=== PATIENT | female | born 1945 | race Two or more races ===

== ENCOUNTER 2018-09-18 18:32 | Emergency (ER) | payer MEDICARE, OTHER ==
[~2018-09-18] VITALS: Ht 162.6 cm; Wt 82.0 kg
[~2018-09-18 18:32] MED LIST: ASPI-1393 PO; GLIP10TA10 PO; HYDR25TA PO; LOSA100T32 PO; METF-414 PO; SIMV10TA6 PO
[2018-09-18] MEDS ORDERED: MORPHINE SULFATE 2 MG/ML CPJ (NOT FOR IM USE) IV ONE (21:00)
[2018-09-18] MEDS ORDERED: ONDANSETRON HCL 4MG/2ML INJ IV ONE (21:00)
[2018-09-18] MEDS ORDERED: SODIUM CHLORIDE 0.9% 1,000 ML IV ONE (21:00)
[2018-09-18 21:16] LABS: CLARITY URINE CLOUDY (CLEAR); COLOR URINE DARK YELLOW (YELLOW); KETONES URINE TRACE (NEGATIVE); LEUKOCYTE ESTERASE URINE TRACE (NEGATIVE); NITRITE URINE NEGATIVE (NEGATIVE); OCCULT BLOOD URINE NEGATIVE (NEGATIVE); PROTEIN URINE TRACE (NEGATIVE)
[2018-09-18 22:01] LABS: CHLORIDE 103 mEq/L (98-107)
[2018-09-18 22:02] LABS: BASOPHILS % 0.3 % (0.0-2.0); EOSINOPHILS % 0.7 % (0.0-5.0); HEMATOCRIT. 31.7 % (36.0-48.0); HEMOGLOBIN. 10.4 g/dL (12.0-16.0); LYMPHOCYTES % 29.6 % (20.0-50.0); MEAN CORPUSCULAR HEMOGLOBIN 29.3 pg (28.0-32.0); MEAN CORPUSCULAR VOLUME 89.5 fL (81.0-99.0); MEAN PLATELET VOLUME 7.4 fl (7.4-10.4); MONOCYTES % 7.4 % (2.0-8.0); PLATELET 371 x1000/uL (130-400); RED BLOOD CELL COUNT 3.55 mill/uL (4.2-5.4); RED CELL DISTRIBUTION WIDTH 14.9 % (11.6-14.6)
[2018-09-18 22:03] LABS: INR 1.2
[2018-09-18] MEDS ORDERED: KETOROLAC 15MG/ML VIAL IV ONE (22:15)
[2018-09-19] MEDS ORDERED: IOHEXOL-350 100 ML BOTTLE ONE (01:13)
[2018-09-19] MEDS ORDERED: ENOXAPARIN 30MG/0.3ML SYR SUBCUT ONE (02:00)
[2018-09-19] MEDS ORDERED: PIPERACILLIN/TAZ 3.375G PREMIX 50 ML IV ONE (02:00)
[2018-09-19 11:06] LABS: HEMOGLOBIN. 9.4 g/dL (12.0-16.0); MEAN CORPUSCULAR HEMOGLOBIN 30.1 pg (28.0-32.0); MEAN CORPUSCULAR VOLUME 89.7 fL (81.0-99.0); MEAN PLATELET VOLUME 7.4 fl (7.4-10.4); PLATELET 333 x1000/uL (130-400); RED BLOOD CELL COUNT 3.12 mill/uL (4.2-5.4); RED CELL DISTRIBUTION WIDTH 15.4 % (11.6-14.6)
[2018-09-19 11:09] LABS: CHLORIDE 108 mEq/L (98-107)
[2018-09-19 12:03] LABS: PLATELET ESTIMATE NORMAL
[2018-09-19 13:51] VITALS: BP 107/58
[2018-09-19] MEDS ORDERED: POTASSIUM CHLORIDE 20MEQ TABLET SR PO ONE (14:15)
== END 2018-09-19 14:36 | disposition home or self-care (01) ==
LOC: ER 18:32 → SUPCPDRO 09-19 14:00 → ER 09-19 14:36
DX: K55.069 Acute infarction of intestine, part and extent unspecified (principal); F41.9 Anxiety disorder, unspecified; E11.9 Type 2 diabetes mellitus without complications; I10 Essential (primary) hypertension; Z79.82 Long term (current) use of aspirin; Z79.899 Other long term (current) drug therapy
CPT/HCPCS: 36415; 74174; 80053; 81003; 82962; 83605; 83690; 84484; 85025; 85610; 87040; 93005; 96365; 96372; 96375; 99291; J1650; J1885; J2270; J2405; J2543; J7030; Q9967; Z7610

== ENCOUNTER 2019-06-20 09:28 | Inpatient (IN) | payer MEDICARE, OTHER ==
[~2019-06-20] VITALS: Ht 162.6 cm; Wt 82.1 kg
[~2019-06-20 09:28] MED LIST changes: -ASPI-1393 PO; +ASPI-1497 PO; -SIMV10TA6 PO; +SIMV10TA97 PO
[2019-06-20 11:02] LABS: BASOPHILS % 0.6 % (0.0-2.0); EOSINOPHILS % 0.9 % (0.0-5.0); LYMPHOCYTES % 20.9 % (20.0-50.0); MEAN CORPUSCULAR HEMOGLOBIN 21.3 pg (28.0-32.0); MEAN CORPUSCULAR VOLUME 71.5 fL (81.0-99.0); MEAN PLATELET VOLUME 7.2 fl (7.4-10.4); MONOCYTES % 6.7 % (2.0-8.0); NEUTROPHILS % 70.9 % (40.0-76.0); PLATELET 530 x1000/uL (130-400); RED CELL DISTRIBUTION WIDTH 18.2 % (11.6-14.6)
[2019-06-20 11:05] LABS: PROTHROMBIN TIME 11.1 sec (9.6-11.0)
[2019-06-20 11:10] LABS: CHLORIDE 108 mEq/L (98-107)
[2019-06-20] MEDS ORDERED: LORAZEPAM 2MG/ML CPJ IV PRN (14:30)
[2019-06-20] MEDS ORDERED: ONDANSETRON HCL 4MG/2ML INJ IV PRN (14:30)
[2019-06-20] MEDS ORDERED: MORPHINE SULFATE 2 MG/ML CPJ (NOT FOR IM USE) IV PRN (14:30)
[2019-06-20] MEDS ORDERED: IPRATROPIUM/ALBUTEROL 0.5-3(2.5)MG/3ML NEB NEB PRN (14:30)
[2019-06-20] MEDS ORDERED: DEXT 5%/0.45% NACL 1000ML 1,000 ML IV SCH (14:30)
[2019-06-20] MEDS ORDERED: CLONIDINE 0.1MG TABLET PO PRN (14:30)
[2019-06-20] MEDS ORDERED: DEXTROSE 50% WATER 50ML SYRINGE IV PRN (14:30)
[2019-06-20] MEDS ORDERED: ACETAMINOPHEN 325MG TABLET PO PRN (14:30)
[2019-06-20] MEDS ORDERED: ACETAMINOPHEN 650MG SUPP PR PRN (14:30)
[2019-06-20] MEDS ORDERED: DIPHENHYDRAMINE 50MG/ML VIAL IV PRN (14:30)
[2019-06-20] MEDS: BLOOD SUGAR DIAGNOSTIC STRIP TEST SCH ×2 (17:00→21:00)
[2019-06-20 17:28] LABS: HEMATOCRIT 21.8 % (36.0-48.0)
[2019-06-20 17:30] LABS: HEMOGLOBIN 6.8 g/dL (12.0-16.0)
[2019-06-20 17:37] LABS: TOTAL IRON BINDING CAPACITY 435 ug/dL (250-450)
[2019-06-20] MEDS: PANTOPRAZOLE SODIUM 40 MG/VIAL IV SCH (18:35)
[2019-06-20 20:39] LABS: HEMATOCRIT 22.1 % (36.0-48.0)
[2019-06-20 20:48] LABS: HEMOGLOBIN 6.8 g/dL (12.0-16.0)
[2019-06-20] MEDS: INSULIN LISPRO 100 UNITS/ML SUBCUT SCH ×2 (21:00→22:30)
[2019-06-20 21:50] VITALS: BP 126/62
[2019-06-20] MEDS ORDERED: IOHEXOL-350 100 ML BOTTLE ONE (22:23)
[2019-06-21] VITALS (11 sets, daily range): BP systolic 108–142; BP diastolic 43–71
[2019-06-21] MEDS ORDERED: BUDE6HFA INH (00:18)
[2019-06-21] MEDS ORDERED: PANT40TA4 PO (00:18)
[2019-06-21] MEDS ORDERED: APIX5TAB PO (00:18)
[2019-06-21 01:22] LABS: HEMATOCRIT 22.9 % (36.0-48.0); HEMOGLOBIN 7.2 g/dL (12.0-16.0)
[2019-06-21] MEDS: PANTOPRAZOLE SODIUM 40 MG/VIAL IV SCH ×2 (04:54→19:07)
[2019-06-21] MEDS: SODIUM CHLORIDE 0.45% 1,000 ML IV SCH ×2 (04:55→08:00)
[2019-06-21] MEDS: BLOOD SUGAR DIAGNOSTIC STRIP TEST SCH ×4 (06:36→21:18)
[2019-06-21] MEDS: INSULIN LISPRO 100 UNITS/ML SUBCUT SCH ×4 (08:59→21:46)
[2019-06-21 10:49] LABS: BASOPHILS % 0.9 % (0.0-2.0); EOSINOPHILS % 0.7 % (0.0-5.0); HEMOGLOBIN. 8.3 g/dL (12.0-16.0); LYMPHOCYTES % 16.2 % (20.0-50.0); MEAN CORPUSCULAR HEMOGLOBIN 23.9 pg (28.0-32.0); MEAN PLATELET VOLUME 7.3 fl (7.4-10.4); MONOCYTES % 5.7 % (2.0-8.0); NEUTROPHILS % 76.5 % (40.0-76.0); PLATELET 450 x1000/uL (130-400); RED BLOOD CELL COUNT 3.46 mill/uL (4.2-5.4); RED CELL DISTRIBUTION WIDTH 19.5 % (11.6-14.6)
[2019-06-21 10:54] LABS: CHLORIDE 106 mEq/L (98-107)
[2019-06-21 11:01] LABS: LDL CHOLESTEROL 50 mg/dL (5-100)
[2019-06-21 11:02] LABS: HDL CHOLESTEROL 43 mg/dL (40-59)
[2019-06-21 11:03] LABS: T4 FREE 0.94 ng/dL (0.76-1.46)
[2019-06-21] MEDS: SORBITOL 70% SOLN 30ML PO SCH ×2 (18:14→21:46)
[2019-06-21] MEDS: METOCLOPRAMIDE HCL 10MG/2ML VIAL IV SCH ×2 (19:08→22:13)
[2019-06-21 19:36] LABS: HEMOGLOBIN 8.7 g/dL (12.0-16.0)
[2019-06-22] VITALS: BP 106/46
[2019-06-22] MEDS: SORBITOL 70% SOLN 30ML PO SCH (01:52)
[2019-06-22] MEDS: METOCLOPRAMIDE HCL 10MG/2ML VIAL IV SCH (01:55)
[2019-06-22 03:43] LABS: CLARITY URINE CLEAR (CLEAR); COLOR URINE DARK YELLOW (YELLOW); KETONES URINE NEGATIVE (NEGATIVE); LEUKOCYTE ESTERASE URINE 1+ (NEGATIVE); NITRITE URINE NEGATIVE (NEGATIVE); OCCULT BLOOD URINE 1+ (NEGATIVE); PROTEIN URINE NEGATIVE (NEGATIVE); SPECIFIC GRAVITY URINE 1.018 (1.005-1.030); UROBILINOGEN URINE 0.2 E.U./dL (0.2-1.0)
[2019-06-22 04:00] VITALS: BP 110/49
[2019-06-22 04:11] LABS: *AMPHETAMINES SCREEN URINE NEGATIVE (NEGATIVE); *BARBITURATES SCREEN URINE NEGATIVE (NEGATIVE); *BENZODIAZEPINES SCREEN URINE NEGATIVE (NEGATIVE); *COCAINE SCREEN URINE NEGATIVE (NEGATIVE)
[2019-06-22 04:12] LABS: CANNABINOID URINE SCREEN NEGATIVE (NEGATIVE); METHADONE URINE SCREEN NEGATIVE (NEGATIVE); OPIATES URINE SCREEN NEGATIVE (NEGATIVE); PHENCYCLIDINE URINE SCREEN NEGATIVE (NEGATIVE)
[2019-06-22] MEDS: PANTOPRAZOLE SODIUM 40 MG/VIAL IV SCH ×2 (04:48→17:31)
[2019-06-22] MEDS: BLOOD SUGAR DIAGNOSTIC STRIP TEST SCH ×4 (06:43→21:00)
[2019-06-22] MEDS: INSULIN LISPRO 100 UNITS/ML SUBCUT SCH ×4 (07:50→23:24)
[2019-06-22 08:00] VITALS: BP 131/62
[2019-06-22 10:19] LABS: HEMATOCRIT 27.8 % (36.0-48.0); HEMOGLOBIN 8.7 g/dL (12.0-16.0); MEAN CORPUSCULAR HEMOGLOBIN 23.6 pg (28.0-32.0); MEAN CORPUSCULAR VOLUME 75.5 fL (81.0-99.0); PLATELET 476 x1000/uL (130-400); RED BLOOD CELL COUNT 3.69 mill/uL (4.2-5.4); RED CELL DISTRIBUTION WIDTH 19.8 % (11.6-14.6)
[2019-06-22] MEDS ORDERED: MIDAZOLAM HCL 5 MG/5 ML VIAL ONE (10:47)
[2019-06-22] MEDS ORDERED: FENTANYL CITRATE/PF 50MCG/ML 2ML VIAL ONE (10:47)
[2019-06-22] MEDS ORDERED: MIDAZOLAM HCL 5 MG/5 ML VIAL IV PRN (10:58)
[2019-06-22] MEDS ORDERED: FENTANYL CITRATE/PF 50MCG/ML 2ML VIAL IV PRN (10:59)
[2019-06-22 12:00] VITALS: BP 124/53
[2019-06-22 16:00] VITALS: BP 93/62
[2019-06-22 20:00] VITALS: BP 116/69
[2019-06-23] VITALS: BP 108/65
[2019-06-23 04:00] VITALS: BP 140/62
[2019-06-23 06:22] LABS: BASOPHILS % 0.5 % (0.0-2.0); HEMATOCRIT. 24.7 % (36.0-48.0); HEMOGLOBIN. 7.7 g/dL (12.0-16.0); LYMPHOCYTES % 19.7 % (20.0-50.0); MEAN CORPUSCULAR HEMOGLOBIN 23.5 pg (28.0-32.0); MEAN CORPUSCULAR VOLUME 75.2 fL (81.0-99.0); MEAN PLATELET VOLUME 7.5 fl (7.4-10.4); MONOCYTES % 8.7 % (2.0-8.0); NEUTROPHILS % 69.1 % (40.0-76.0); PLATELET 374 x1000/uL (130-400); RED BLOOD CELL COUNT 3.29 mill/uL (4.2-5.4); RED CELL DISTRIBUTION WIDTH 20.6 % (11.6-14.6)
[2019-06-23 06:31] LABS: CHLORIDE 112 mEq/L (98-107)
[2019-06-23] MEDS: PANTOPRAZOLE SODIUM 40 MG/VIAL IV SCH ×2 (07:09→18:26)
[2019-06-23] MEDS: BLOOD SUGAR DIAGNOSTIC STRIP TEST SCH ×3 (07:20→18:06)
[2019-06-23 08:00] VITALS: BP 103/45
[2019-06-23] MEDS: INSULIN LISPRO 100 UNITS/ML SUBCUT SCH ×3 (10:09→18:25)
[2019-06-23 12:00] VITALS: BP 108/55
[2019-06-23 17:11] LABS: HEMATOCRIT 26.3 % (36.0-48.0); HEMOGLOBIN 8.1 g/dL (12.0-16.0)
[2019-06-23 18:45] VITALS: BP 106/56
[2019-06-24] MEDS ORDERED: LOSARTAN POTASSIUM 100 MG TABLET PO SCH (09:00)
[2019-06-24] MEDS ORDERED: FAMOTIDINE 20MG/2ML VIAL IV SCH (09:00)
== END 2019-06-23 19:16 | disposition home or self-care (01) | DRG 241 ==
LOC: ER 09:28 → 6WST 13:52 → EDBEDREQ 13:55 → EDBEDREQTM 13:55 → ENRESERV 21:09
PROVIDERS: ADMIT Internal Medicine; ATTEND Internal Medicine
PROC: 30233N1 Transfusion of Nonautologous Red Blood Cells into Peripheral Vein, Percutaneous Approach (ICD-10-PCS; 2019-06-20)
PROC: 0DJD8ZZ Inspection of Lower Intestinal Tract, Via Natural or Artificial Opening Endoscopic (ICD-10-PCS; principal; 2019-06-22)
PROC: 0DB68ZX Excision of Stomach, Via Natural or Artificial Opening Endoscopic, Diagnostic (ICD-10-PCS; 2019-06-22)
DX: K29.60 Other gastritis without bleeding (principal); K55.1 Chronic vascular disorders of intestine; E11.22 Type 2 diabetes mellitus with diabetic chronic kidney disease; J45.901 Unspecified asthma with (acute) exacerbation; I27.20 Pulmonary hypertension, unspecified; D50.9 Iron deficiency anemia, unspecified; K57.30 Diverticulosis of large intestine without perforation or abscess without bleeding; K44.9 Diaphragmatic hernia without obstruction or gangrene; E78.5 Hyperlipidemia, unspecified; N18.9 Chronic kidney disease, unspecified; D17.5 Benign lipomatous neoplasm of intra-abdominal organs; I12.9 Hypertensive chronic kidney disease with stage 1 through stage 4 chronic kidney disease, or unspecified chronic kidney disease; K64.8 Other hemorrhoids; I25.10 Atherosclerotic heart disease of native coronary artery without angina pectoris; D17.9 Benign lipomatous neoplasm, unspecified; Z79.01 Long term (current) use of anticoagulants; F41.9 Anxiety disorder, unspecified; J45.909 Unspecified asthma, uncomplicated; Z79.51 Long term (current) use of inhaled steroids; Z79.82 Long term (current) use of aspirin; Z79.84 Long term (current) use of oral hypoglycemic drugs; Z79.899 Other long term (current) drug therapy; Z86.718 Personal history of other venous thrombosis and embolism
CPT/HCPCS: 36415; 71045; 71250; 74174; 74176; 80048; 80053; 80061; 80305; 81003; 82728; 82962; 83036; 83540; 83550; 84439; 84443; 84484; 85014; 85018; 85025; 85027; 85044; 86850; 86900; 86920; 87077; 87186; 88305; 88312; 88313; 93005; 93306; 93970; 96374; 97162; 99285; C9113; J1815; J2250; J2765; J3010; P9016; Q9967

== ENCOUNTER 2020-11-18 12:36 | Inpatient (IN) | payer MEDICARE, OTHER ==
[~2020-11-18] VITALS: Ht 162.6 cm; Wt 98.0 kg
[~2020-11-18 12:36] MED LIST changes: -ASPI-1497 PO; +BUDE6HFA INH; +PANT40TA51 PO
[2020-11-18 13:52] LABS: BASOPHILS % 0.5 % (0.0-2.0); EOSINOPHILS % 1.4 % (0.0-5.0); HEMATOCRIT. 36.2 % (36.0-48.0); LYMPHOCYTES % 16.9 % (20.0-50.0); MEAN CORPUSCULAR HEMOGLOBIN 31.1 pg (28.0-32.0); MEAN CORPUSCULAR VOLUME 93.4 fL (81.0-99.0); MEAN PLATELET VOLUME 7.8 fl (7.4-10.4); NEUTROPHILS % 76.2 % (40.0-76.0); PLATELET 307 x1000/uL (130-400); RED BLOOD CELL COUNT 3.87 mill/uL (4.2-5.4); RED CELL DISTRIBUTION WIDTH 14.2 % (11.6-14.6)
[2020-11-18 13:58] LABS: CHLORIDE 102 mEq/L (98-107)
[2020-11-18] MEDS ORDERED: LORAZEPAM 0.5MG TABLET PO PRN (16:00)
[2020-11-18] MEDS ORDERED: GUAIFENESIN 200MG/10ML SUGAR FREE UDC PO PRN (16:00)
[2020-11-18] MEDS ORDERED: NA PHOS,M-B/NA PHOS,DI-BA ENEMA 118ML PR PRN (16:00)
[2020-11-18] MEDS ORDERED: MORPHINE SULFATE 2 MG/ML CPJ (NOT FOR IM USE) IV PRN (16:00)
[2020-11-18] MEDS ORDERED: IPRATROPIUM/ALBUTEROL 0.5-3(2.5)MG/3ML NEB NEB PRN (16:00)
[2020-11-18] MEDS ORDERED: ACETAMINOPHEN 325MG TABLET PO PRN (16:00)
[2020-11-18] MEDS ORDERED: MAGNESIUM/ALUMINUM HYDROXIDE/SIMETHICONE 30ML UDC PO PRN (16:00)
[2020-11-18] MEDS ORDERED: CLONIDINE 0.1MG TABLET PO PRN (16:00)
[2020-11-18] MEDS ORDERED: DIPHENHYDRAMINE 50MG/ML VIAL IV PRN (16:00)
[2020-11-18] MEDS ORDERED: DOCUSATE SODIUM 100MG CAPSULE PO PRN (16:00)
[2020-11-18] MEDS ORDERED: DEXTROSE 50% WATER 50ML SYRINGE IV PRN (16:00)
[2020-11-18] MEDS ORDERED: ACETAMINOPHEN 650MG SUPP PR PRN (16:00)
[2020-11-18] MEDS ORDERED: ONDANSETRON HCL 4MG/2ML INJ IV PRN (16:00)
[2020-11-18 16:36] LABS: CLARITY URINE CLEAR (CLEAR); COLOR URINE YELLOW (YELLOW); KETONES URINE NEGATIVE (NEGATIVE); LEUKOCYTE ESTERASE URINE NEGATIVE (NEGATIVE); NITRITE URINE NEGATIVE (NEGATIVE); OCCULT BLOOD URINE NEGATIVE (NEGATIVE); PH URINE 6.5 (4.5-8.0); PROTEIN URINE NEGATIVE (NEGATIVE); SPECIFIC GRAVITY URINE 1.009 (1.005-1.030); UROBILINOGEN URINE 0.2 E.U./dL (0.2-1.0)
[2020-11-18] MEDS: AMLODIPINE 5MG TABLET PO SCH (17:29)
[2020-11-18] MEDS: BLOOD SUGAR DIAGNOSTIC STRIP TEST SCH ×2 (17:58→21:37)
[2020-11-18] MEDS: INSULIN LISPRO 100 UNITS/ML SUBCUT SCH ×2 (18:20→21:36)
[2020-11-18] MEDS: HYDROCODONE/ACETAMINOPHEN 5/325MG TABLET PO PRN (19:47)
[2020-11-18 20:17] VITALS: BP 155/65
[2020-11-18 20:56] VITALS: BP 155/65
[2020-11-18] MEDS ORDERED: FAMOTIDINE 20MG TABLET PO SCH (21:00)
[2020-11-18] MEDS ORDERED: ATOR40TA70 PO (21:45)
[2020-11-18] MEDS ORDERED: ASPI-1497 PO (21:52)
[2020-11-18] MEDS ORDERED: LEVVL SQ (21:52)
[2020-11-18] MEDS ORDERED: FERR325T30 PO (21:52)
[2020-11-18] MEDS ORDERED: *PATIENT'S OWN MEDICATION STORAGE XX SCH (22:15)
[2020-11-19 00:07] LABS: CREATINE KINASE 293 IU/L (26-192)
[2020-11-19 00:08] LABS: CREATINE KINASE MB FRACTION 1.9 ng/mL (0.5-3.6)
[2020-11-19 00:14] VITALS: BP 139/62
[2020-11-19 04:00] VITALS: BP 168/80
[2020-11-19 07:15] LABS: CHLORIDE 105 mEq/L (98-107)
[2020-11-19 07:16] LABS: BASOPHILS % 0.3 % (0.0-2.0); EOSINOPHILS % 1.9 % (0.0-5.0); HEMATOCRIT. 37.2 % (36.0-48.0); HEMOGLOBIN. 12.4 g/dL (12.0-16.0); LYMPHOCYTES % 22.9 % (20.0-50.0); MEAN CORPUSCULAR HEMOGLOBIN 31.4 pg (28.0-32.0); MEAN CORPUSCULAR VOLUME 94.4 fL (81.0-99.0); MONOCYTES % 5.7 % (2.0-8.0); NEUTROPHILS % 69.2 % (40.0-76.0); PLATELET 319 x1000/uL (130-400); RED BLOOD CELL COUNT 3.94 mill/uL (4.2-5.4); RED CELL DISTRIBUTION WIDTH 14.2 % (11.6-14.6)
[2020-11-19 07:26] LABS: LDL CHOLESTEROL 71 mg/dL (5-100)
[2020-11-19 07:27] LABS: HDL CHOLESTEROL 44 mg/dL (40-59)
[2020-11-19 07:28] LABS: CREATINE KINASE MB FRACTION 2.1 ng/mL (0.5-3.6); T4 FREE 0.97 ng/dL (0.76-1.46)
[2020-11-19 07:29] LABS: CREATINE KINASE 245 IU/L (26-192)
[2020-11-19] MEDS: BLOOD SUGAR DIAGNOSTIC STRIP TEST SCH ×3 (07:29→17:20)
[2020-11-19] MEDS: INSULIN LISPRO 100 UNITS/ML SUBCUT SCH ×3 (07:29→17:50)
[2020-11-19 08:00] VITALS: BP 146/71
[2020-11-19] MEDS: AMLODIPINE 5MG TABLET PO SCH (08:41)
[2020-11-19] MEDS: HYDROCODONE/ACETAMINOPHEN 5/325MG TABLET PO PRN (09:36)
[2020-11-19 12:00] VITALS: BP 148/78
[2020-11-19] MEDS ORDERED: CLON0.1T MT (15:11)
[2020-11-19 16:00] VITALS: BP 129/61
[2020-11-19 16:16] VITALS: BP 138/75
== END 2020-11-19 17:45 | disposition home or self-care (01) | DRG 48 ==
LOC: ER 12:38 → 6WST 18:03 → EDBEDREQ 18:14 → ENRESERV 19:37
PROVIDERS: ADMIT Internal Medicine; ATTEND Internal Medicine
DX: G90.9 Disorder of the autonomic nervous system, unspecified (principal); D64.9 Anemia, unspecified; E11.65 Type 2 diabetes mellitus with hyperglycemia; F41.9 Anxiety disorder, unspecified; I10 Essential (primary) hypertension; Z20.822 Contact with and (suspected) exposure to COVID-19; J45.909 Unspecified asthma, uncomplicated; Z79.899 Other long term (current) drug therapy; Z79.4 Long term (current) use of insulin; Z79.51 Long term (current) use of inhaled steroids; Z79.82 Long term (current) use of aspirin; R91.1 Solitary pulmonary nodule; Z87.19 Personal history of other diseases of the digestive system
CPT/HCPCS: 36415; 70551; 71045; 80053; 80061; 81003; 82550; 82553; 82962; 83036; 83880; 84439; 84443; 84484; 85025; 87426; 93005; 93306; 93880; 93970; 97161; 99285; J1815

== ENCOUNTER 2022-04-28 11:02 | Emergency (ER) | payer MEDICARE, OTHER ==
[~2022-04-28] VITALS: Ht 165.1 cm; Wt 77.0 kg
[~2022-04-28 11:02] MED LIST changes: +ASPI-1497 PO; +ATOR40TA70 PO; +CLON0.1T MT; +FERR325T30 PO; +LEVVL SQ
[2022-04-28] MEDS ORDERED: ACETAMINOPHEN 325MG TABLET PO ONE (12:00)
[2022-04-28] MEDS ORDERED: SODIUM CHLORIDE 0.9% 1,000 ML IV ONE (12:00)
[2022-04-28 13:18] LABS: BASOPHILS % 0.4 % (0.0-2.0); EOSINOPHILS % 0.8 % (0.0-5.0); HEMATOCRIT. 38.2 % (36.0-48.0); HEMOGLOBIN. 12.5 g/dL (12.0-16.0); LYMPHOCYTES % 14.9 % (20.0-50.0); MEAN CORPUSCULAR HEMOGLOBIN 29.3 pg (28.0-32.0); MEAN CORPUSCULAR VOLUME 89.5 fL (81.0-99.0); MEAN PLATELET VOLUME 7.6 fl (7.4-10.4); MONOCYTES % 5.1 % (2.0-8.0); NEUTROPHILS % 78.8 % (40.0-76.0); PLATELET 392 x1000/uL (130-400); RED BLOOD CELL COUNT 4.27 mill/uL (4.2-5.4); RED CELL DISTRIBUTION WIDTH 14.9 % (11.6-14.6)
[2022-04-28 13:27] LABS: CHLORIDE 101 mEq/L (98-107)
[2022-04-28] MEDS ORDERED: ACETAMINOPHEN 325MG TABLET PO NR (15:45)
[2022-04-28] MEDS ORDERED: HYDR-4001 MT (16:47)
[2022-04-28] MEDS ORDERED: HYDROCODONE/ACETAMINOPHEN 5/325MG TABLET PO ONE (17:00)
[2022-04-28 17:09] VITALS: BP 137/67
== END 2022-04-28 17:19 | disposition home or self-care (01) ==
LOC: ER 11:02
DX: R51.9 Headache, unspecified (principal); I10 Essential (primary) hypertension; E11.65 Type 2 diabetes mellitus with hyperglycemia; E86.0 Dehydration; Z79.4 Long term (current) use of insulin; Z79.899 Other long term (current) drug therapy
CPT/HCPCS: 36415; 70450; 71045; 80053; 83690; 84484; 85025; 93005; 99285; J7030